=== PATIENT | male | born 1985 | race Caucasian/White ===

== ENCOUNTER → 2021-02-16 07:23 | Outpatient (CLI) | payer OTHER, SELFPAY ==
--- NOTE | 2021-02-16 | DI.MRI.S_ITS ---
PROCEDURE: MR SHOULDER RT W CON INDICATIONS: Pain in right shoulder TECHNIQUE: After the administration of 12 mL of dilute intra-articular Gadolinium contrast, oblique coronal T1 and T2 spin echo with fat saturation, oblique sagittal T1 spin echo with and without fat saturation, oblique sagittal T2 fast spin echo with fat saturation, axial T1 spin echo with fat saturation through the shoulder. COMPARISON: None. FINDINGS: Rotator cuff: Infraspinatus tendinopathy and thickening with mild interstitial tearing. Low-grade articular surface fraying is present. Teres minor appears intact. Supraspinatus tendon appears intact although there is mild tendinopathy. Subscapularis tendon grossly intact and there may be post-injection sequela. No atrophy of the rotator cuff muscles. Mild fatty infiltration of the infraspinatus muscle. Bones and bursae: No bone marrow contusions or fractures. Moderate acromioclavicular joint degeneration. Acromion demonstrates conventional anatomy, without an os acromiale. Capsule and soft tissues: Labrum: Superior labral tear is seen with intrasubstance gadolinium signal intensity and bucket-handle appearance. This extends into the biceps anchor. There is also ill-defined probably chronic tear of the anteroinferior segment with adjacent chondral flap tear/chondral labral separation. Mild blunting of the posterior labrum. This finding probably chronic tear versus advanced degeneration Biceps: Long head of the biceps tendon intact. Rotator interval: There is suggestion of loculated or cystic fluid collection seen in the rotator interval for example image 16/9. Unclear if this represents possible sprain rupture of the superior glenohumeral ligament which is otherwise not well seen. Inferior glenohumeral ligament appears grossly intact. Coracohumeral ligament: Intact. IMPRESSION: Superior labral tear with bucket-handle appearance extending into the biceps anchor. Additional chronic appearing labral tear of the anteroinferior segment with adjacent chondral flap tear/chondrolabral separation. There is also prominent blunting of the posterior labrum suggestive of chronic tear/advanced degeneration Infraspinatus tendinopathy with low-grade articular surface fraying. Mild supraspinatus tendinopathy. Possible rupture of the superior glenohumeral ligament. Differential for the appearance includes a ganglion or synovial cyst at the rotator interval Dictated by: Joey Perkins M.D. on 02/16/2021 at 9:29 Approved by: Joey Perkins M.D. on 02/16/2021 at 9:42
--- NOTE | 2021-02-16 | DI.RAD.S_ITS ---
PROCEDURE: FL SHOULDER INJECTION MR/CT RT INDICATIONS: Pain in right shoulder COMPARISON: [facility], MR, MR SHOULDER RT W CON, 02/16/2021, 8:06. TECHNIQUE: The indications, alternatives, benefits, risks, and complications of the procedure were explained to the patient. Written informed consent was obtained and placed in the chart. The shoulder was examined fluoroscopically and a site for needle placement chosen for entry into the glenohumeral joint from an anterior approach. The skin was prepped and draped in a sterile fashion, and 1% lidocaine infiltrated from skin down to joint capsule. A spinal needle was inserted into the glenohumeral joint, and a small amount of iodinated contrast media injected to confirm intra-articular placement of the needle tip. This was followed by approximately 12 mL dilute solution of a gadolinium containing MR contrast agent. The needle was removed and a dressing was applied. The patient was given postprocedural instructions and sent to the MR suite for MR imaging. FINDINGS: A single fluoroscopic spot image demonstrates intra-articular location of injected iodinated contrast. IMPRESSION: Successful fluoroscopically guided administration of dilute Gadolinium solution into the shoulder joint for MR arthrogram. Dictated by: Chase Berry M.D. on 02/16/2021 at 11:02 Approved by: Chase Berry M.D. on 02/16/2021 at 11:02
== END ==
PROVIDERS: Referring Provider Student in an Organized Health Care Education/Training Program; Visit Provider Student in an Organized Health Care Education/Training Program
DX: M25.511 Pain in right shoulder (principal); M19.011 Primary osteoarthritis, right shoulder; S43.491A Other sprain of right shoulder joint, initial encounter
CPT/HCPCS: 23350; 73222; 77002

== ENCOUNTER → 2022-08-22 11:42 | Outpatient (CLI) | payer OTHER, SELFPAY ==
[2022-08-22 13:02] LABS: COVID19 -Nasal RAPID Negative (Negative)
== END ==
PROVIDERS: PCP Orthopaedic Surgery; Referring Provider Orthopaedic Surgery; Visit Provider Orthopaedic Surgery
DX: Z20.822 Contact with and (suspected) exposure to COVID-19 (principal)
CPT/HCPCS: 87635; C9803

== ENCOUNTER 2022-08-24 08:08 | Day surgery (SDC) | payer OTHER, SELFPAY ==
[2022-08-17 08:50] VITALS: BMI 24.8
[2022-08-24] VITALS (8 sets, daily range): BP systolic 107–134; BP diastolic 68–83; PULSE 76–92; RESP 14–16; TEMP 36.1–36.9; O2SAT 96–98; BMI 24.8
[2022-08-24] MEDS: LACTATED RINGERS 1,000 ML 42 ML IV ×2 (09:07→10:48)
--- NOTE | 2022-08-24 09:28 | PM.PREOP ---
Pre-operative Note Interval Note History & Physical reviewed/Exam performed by Physician: Yes Changes to H&P: No
--- NOTE | 2022-08-24 09:53 | SUR.OPER ---
Beach chair with skytron shoulder positioner. Lower body on padded OR bed. Head in foam padded head cradle, secured with straps. Non-operative arm secured <90 degrees abduction. Pillow under knees. Safety belt at thigh. Cloth tape over blanket over lower legs.
[2022-08-24] MEDS: CEFAZOLIN 2 GM/100 ML PREMIX 100 ML IV (10:06)
[2022-08-24] MEDS: LIDOCAINE 2% W/EPI INJ 20 ML INJ (10:50)
[2022-08-24] MEDS: SODIUM CHLORIDE IRRIG SOLUTION 3,000 ML, EPINEPHrine 1 MG IRR (10:51)
--- NOTE | 2022-08-24 11:31 | P.OP_ITS ---
Operative Date/Time/Diagnoses Date of procedure: 08/24/22 Time of procedure: 10:00 Pre-op diagnosis: Bucket-handle SLAP tear with extension into the bicipital anchor Post-op diagnosis: same Procedure & Clinicians Procedure: Extensive debridement of the shoulder joint with biceps tenodesis done arthroscopically Same procedure as scheduled: Yes Indications: Slap tear Surgeon: Brian Stewart Credit Collections Manager: Dianne Lira Anesthesia Type: General and Peripheral nerve block Operative Notes Findings: Bucket-handle SLAP tear involving the bicipital anchor. Some degenerative changes throughout the labrum as well. Some mild arthritic changes to the glenoid no significant arthritic changes to the humeral head. Some mild partial tearing to the articular aspect the supraspinatus and infraspinatus. Some synovitis in the glenohumeral joint. Closure Type: primary Applied: implant(s) (Arthrex anchor) Estimated Blood Loss (mL): 5 Procedure in detail: On date of service, Patient was met in the holding area. The operative site was signed and witnessed by the OR staff. The surgeries once again discussed with the patient and any remaining questions they had were answered fully. Patient was taken back to the operating theater and placed on the operating table in a supine position. Great care was taken to ensure that all bony prominences were properly padded. Patient was then placed into the beach chair position. The head and neck were properly positioned and secured. A timeout was performed verifying patient's name, procedure, and the operative site. The upper extremity was then prepped and draped in the normal sterile fashion. Previously, the bony anatomy and portal sites were marked out as well as injected with Marcaine with epinephrine. An 11 blade was used to make an incision in the posterior aspect of the shoulder. The camera was placed, and a diagnostic shoulder scope was performed. Findings listed above. Next under direct visualization, 2 portals were made. Anterior superior and anterior inferior portals. A shaver was brought in anteriorly and a debridement of the glenohumeral joint was performed. Mainly focusing on some articular sided tearing of the supraspinatus. No sign of any high-grade partial tears. Shaver was then used to debride the labral tear cleaning up the bucket-handle aspect of the tear. Patient also has some degenerative tearing that was also debrided using the shaver. Patient had synovitis to the anterior aspect of the shoulder which was also debrided using the shaver. Using the superior anterior portal suture material was passed around the biceps tendon and. The suture was then passed through the eyelet and then pulled back through locking the suture around the biceps. This was then passed underneath the biceps tendon and then a pointed grasper was used to madden through the biceps tendon out and grab the suture and pull it through providing a loop as well as a cinching fixation of the proximal biceps. Once we were satisfied with the suture repair, the distal biceps was released at the superior labrum. S haver was used once again to debride the bicipital anchor as well as any remaining tearing to the superior labrum. We then found a good insertion point just superior to the bicipital sling and the most superior aspect of the bicipital groove. This was done arthroscopically. Punch was used to make a hole and then the anchor was then used to tenodesis the suture into that hole providing a secure fixation of the proximal biceps. Shoulder was taken through range of motion and a probe was used to test the repair and there was no sign of any loosening. Camera was placed in both posterior and anterior portals to exam and bicep tendon as well as shoulder joint to make sure there was no additional debridement that needed to be performed. Patient's shoulder was then cleaned dried and dressed and patient was taken to the PACU in stable condition Complications: none Post-operative Condition: stable Disposition: PACU Plan for aftercare: Patient will follow our postoperative protocol for a biceps tenodesis
[2022-08-24] MEDS: ONDANSETRON 4 MG/2 ML INJ IV (12:26)
== END 2022-08-24 12:44 | disposition home or self-care (01) ==
PROVIDERS: PCP Orthopaedic Surgery; Referring Provider Orthopaedic Surgery; Visit Provider Orthopaedic Surgery
PROC: 0RQJ4ZZ Repair Right Shoulder Joint, Percutaneous Endoscopic Approach (ICD-10-PCS; CPT 29807; principal; 2022-08-24 10:00)
DX: S43.431A Superior glenoid labrum lesion of right shoulder, initial encounter (principal); M75.41 Impingement syndrome of right shoulder; M65.811 Other synovitis and tenosynovitis, right shoulder
CPT/HCPCS: 29828; 29823; 64450; J0171; J0690; J1100; J2250; J2405; J2704; J3010